=== PATIENT | male | born 1945 | race Caucasian/White ===

== ENCOUNTER 2023-05-25 16:43 | Observation (INO) | payer OTHER, SELFPAY ==
[2023-05-25] VITALS (25 sets, daily range): BP systolic 151–166; BP diastolic 80–101; PULSE 76–112; RESP 11–26; TEMP 36.7; O2SAT 92–99; BMI 23.7; BMI 23.4
--- NOTE | 2023-05-25 16:50 | ECG_ITS ---
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
--- NOTE | 2023-05-25 16:53 | CT_ITS ---
The [address] [address] Patient Name: MIAN COYLE MRN: [id number] date: 1945 Sex: M Assigned Patient Location: ED.MAIN Current Patient Location: ED.MAIN Accession/Order Number: [id number] Exam Date: 05/25/2023 16:45 Report Date: 05/25/2023 17:19 At the request of: YADI SMITH Procedure: CT stroke head/brain wo con EXAMINATION: CT stroke head/brain wo con TECHNIQUE: Axial CT images were obtained through the brain. Sagittal and coronal reformatted images were also obtained. Dose reduction techniques were achieved by using automated exposure control and/or adjustment of mA and/or kV according to patient size and/or use of iterative reconstruction technique. HISTORY: weak . Acute slurred speech. COMPARISON: None. FINDINGS: Intracranial Bleed: No evidence for acute intracranial bleed. Intracranial Mass: No evidence for mass lesion. No mass effect or midline shift. Extra-axial spaces: There is mild cerebral atrophy and proportional ventricular enlargement. White/Ibarra Matter: Loss of ibarra-white matter differentiation of the left frontal lobe suspicious for subacute ischemia. Moderate chronic white matter small vessel ischemic change. Small old lacunar infarcts of the thalami and basal ganglia bilaterally. Skull/Scalp: No evidence for skull fracture or lesion. Orbits and sinuses: The orbits appear unremarkable. The visualized paranasal sinuses are clear. CT/CT stroke head/brain wo con IMPRESSION: Suspicious for subacute ischemia of the left frontal lobe. A critical result was communicated to Yadi Smith D at 05/25/2023 5:19 PM EDT by Michael Lundy MD. Electronically authenticated by: MICHAEL LUNDY Date: 05/25/2023 17:19
[2023-05-25 16:59] LABS: Basophils Absolute Auto 0.1 10^3/uL (0.0-0.1); Basophils Percent Auto 0.7 % (0.2-2.0); Eosinophils Percent Auto 0.4 % (0.9-7.0); Hematocrit 39.8 % (42.0-54.0); Hemoglobin 13.4 g/dL (14.0-18.0); Immature Granulocytes Abs Auto 0.05 10^3/uL (0.00-0.03); Immature Granulocytes Pct Auto 0.4 % (0.0-0.5); Lymphocytes Absolute Auto 1.3 10^3/uL (1.2-3.8); Mean Corpuscular HGB Conc 33.7 g/dL (29.9-35.2); Mean Corpuscular Hemoglobin 31.1 pg (25.9-34.0); Mean Corpuscular Volume 92.3 fL (80.0-94.0); Mean Platelet Volume 9.7 fL (9.5-13.5); Monocytes Absolute Auto 0.7 10^3/uL (0.3-0.8); Monocytes Percent Auto 6.1 % (1.7-12.0); Neutrophils Percent Auto 80.4 % (43.0-75.0); Platelet Count 228 10^3/uL (150-450); Red Blood Count 4.31 10^6/uL (4.70-6.10); Red Cell Distribution Width 13.2 % (11.0-15.0); White Blood Count 11.2 10^3/uL (4.0-11.0)
[2023-05-25 17:19] LABS: Alanine Aminotransferase 24 U/L (16-63); Albumin Globulin Ratio 0.9; Albumin Level 3.5 g/dL (3.4-5.0); Alkaline Phosphatase 62 U/L (46-116); Anion Gap 11.4; Aspartate Amino Transferase 20 U/L (15-37); Bilirubin Total 0.6 mg/dL (0.2-1.0); Carbon Dioxide 27.4 mmol/L (21.0-32.0); Chloride 104 mmol/L (98-107); Estimated GFR (African America 55 (>=60); Estimated GFR (Non-African Ame 45 (>=60); Globulin 3.8 g/dL; Glucose 212 mg/dL (74-106); Potassium 3.8 mmol/L (3.5-5.1); Sodium 139 mmol/L (136-145); Total Protein 7.3 g/dL (6.4-8.2)
[2023-05-25 17:23] LABS: Amylase 67 U/L (25-115); Bilirubin Direct 0.1 mg/dL (0.0-0.2); Troponin I High Sensitivity 11.9 pg/mL (4.0-76.1)
--- NOTE | 2023-05-25 17:23 | XR_ITS ---
The [address] [address] Patient Name: MIAN COYLE MRN: [id number] date: 1945 Sex: M Assigned Patient Location: ER Current Patient Location: ED.MAIN Accession/Order Number: [id number] Exam Date: 05/25/2023 17:18 Report Date: 05/25/2023 17:37 At the request of: YADI SMITH Procedure: XR chest 1V EXAMINATION: XR chest 1V HISTORY: Slurred speech COMPARISON: Chest x-ray 02/18/2021 TECHNIQUE: Portable chest FINDINGS: The lung parenchyma is free of consolidation or infiltrate. No pneumothorax or pleural effusion. The cardiac, mediastinal and hilar contours are normal. The visualized osseous structures exhibit no gross abnormality. XR/XR chest 1V IMPRESSION: No acute cardiopulmonary abnormality. Electronically authenticated by: BRIAN GOODE Date: 05/25/2023 17:37
--- NOTE | 2023-05-25 18:27 | CT_ITS ---
The [address] [address] Patient Name: MIAN COYLE MRN: [id number] date: 1945 Sex: M Assigned Patient Location: ER Current Patient Location: ED.MAIN Accession/Order Number: [id number] Exam Date: 05/25/2023 18:20 Report Date: 05/25/2023 19:26 At the request of: YADI SMITH Procedure: CT angio head CT angio neck, CT angio head, 05/25/2023 6:20 PM EDT INDICATION: subacute stroke COMPARISON: There is no appropriate prior study for comparison. TECHNIQUE: Pre and postcontrast enhanced CT angiography of the head and neck were acquired withoutcontrast.3 D MIP images were reconstructed in sagittal and coronal format at the scanner and were evaluated at the time of dictation.3-D images provided by [employer] software. Dose reduction techniques were achieved by using automated exposure control and/or adjustment of mA and/or kV according to patient size and/or use of iterative reconstruction technique. FINDINGS: The great vessels enhance normally. No filling defects are identified within the carotid arteries. There is no significant stenosis at the origin of the internal carotid arteries. No abnormality of [place] is noted. There is significant atherosclerotic changes within the cavernous portion of the internal carotid arteries with mild stenosis on the left side. There is a plastic right A1. The proximal anterior cerebral artery is azygos. There is a origin of the right MEAT TEAM MEMBER. The KIKA MCA and MEAT TEAM MEMBER are unremarkable. The anterior and posterior communicating arteries are patent. There is no aneurysm or other significant stenosis. Mild focal stenosis within the right V4. No abnormality of the remainder of vertebral and basilar arteries is noted. No mass, mass effect or midline shift or hemorrhage in the brain parenchyma is noted. No significant soft tissue abnormality within the neck is noted. The visualized portion of the lungs is unremarkable. There is a diverticulum within the proximal esophagus measuring approximately 4.6 cm in transverse diameter. No suspicious bone lesion is noted. Multilevel degenerative changes of cervical spine. Mild degenerative changes within the right TMJ are noted. CT/CT angio head IMPRESSION: No CT evidence of embolus or severe stenosis or dissection in the major arteries in the current study. CAROTID STENOSIS REFERENCE: MILD = <50% stenosis. MODERATE = 50-69% stenosis. SEVERE = >70% stenosis. Electronically authenticated by: OMAR CUNNINGHAM Date: 05/25/2023 19:26
--- NOTE | 2023-05-25 18:27 | CT_ITS ---
The [address] [address] Patient Name: MIAN COYLE MRN: [id number] date: 1945 Sex: M Assigned Patient Location: ER Current Patient Location: ED.MAIN Accession/Order Number: [id number] Exam Date: 05/25/2023 18:20 Report Date: 05/25/2023 19:26 At the request of: YADI SMITH Procedure: CT angio neck CT angio neck, CT angio head, 05/25/2023 6:20 PM EDT INDICATION: subacute stroke COMPARISON: There is no appropriate prior study for comparison. TECHNIQUE: Pre and postcontrast enhanced CT angiography of the head and neck were acquired withoutcontrast.3 D MIP images were reconstructed in sagittal and coronal format at the scanner and were evaluated at the time of dictation.3-D images provided by [employer] software. Dose reduction techniques were achieved by using automated exposure control and/or adjustment of mA and/or kV according to patient size and/or use of iterative reconstruction technique. FINDINGS: The great vessels enhance normally. No filling defects are identified within the carotid arteries. There is no significant stenosis at the origin of the internal carotid arteries. No abnormality of [place] is noted. There is significant atherosclerotic changes within the cavernous portion of the internal carotid arteries with mild stenosis on the left side. There is a plastic right A1. The proximal anterior cerebral artery is azygos. There is a origin of the right SILO FILLER. The KIKA MCA and SILO FILLER are unremarkable. The anterior and posterior communicating arteries are patent. There is no aneurysm or other significant stenosis. Mild focal stenosis within the right V4. No abnormality of the remainder of vertebral and basilar arteries is noted. No mass, mass effect or midline shift or hemorrhage in the brain parenchyma is noted. No significant soft tissue abnormality within the neck is noted. The visualized portion of the lungs is unremarkable. There is a diverticulum within the proximal esophagus measuring approximately 4.6 cm in transverse diameter. No suspicious bone lesion is noted. Multilevel degenerative changes of cervical spine. Mild degenerative changes within the right TMJ are noted. CT/CT angio neck IMPRESSION: No CT evidence of embolus or severe stenosis or dissection in the major arteries in the current study. CAROTID STENOSIS REFERENCE: MILD = <50% stenosis. MODERATE = 50-69% stenosis. SEVERE = >70% stenosis. Electronically authenticated by: OMAR CUNNINGHAM Date: 05/25/2023 19:26
[2023-05-25 19:06] LABS: Bilirubin Urine NEGATIVE (NEGATIVE); Blood Urine NEGATIVE (NEGATIVE); Clarity Urine CLEAR (CLEAR); Color Urine YELLOW (YELLOW); Glucose Urine UA NEGATIVE (NEGATIVE); Ketones Urine NEGATIVE (NEGATIVE); Leukocyte Esterase Urine NEGATIVE (NEGATIVE); Nitrite Urine NEGATIVE (NEGATIVE); Protein Urine NEGATIVE (NEG/TRACE); Specific Gravity Urine 1.015 (1.005-1.025); Urobilinogen Urine 0.2 EU/dL (0.2-1.0); pH Urine 7.5 (5.0-9.0)
[2023-05-25 19:13] LABS: Bacteria Urine NONE SEEN #/HPF (NONE SEEN); Cast Seen? NONE SEEN #/LPF (NONE SEEN); Crystals Seen? None Seen #/HPF (None Seen); Mucus Urine NONE SEEN (NONE SEEN); RBC Urine 0-2 #/HPF (0-2); Squamous Epithelial Cell Urine RARE #/LPF (NONE/RARE); WBC Urine NONE SEEN #/HPF (NONE SEEN)
[2023-05-25 19:14] LABS: Urine Culture Indicated NO
--- NOTE | 2023-05-25 20:10 | ED_ITS ---
HPI - General Adult General Chief complaint: Weakness Stated complaint: CVA Time Seen by Provider: 05/25/23 16:46 Source: patient Source information: EMS Mode of arrival: ambulance Limitations: no limitations History of Present Illness HPI narrative: This 77-year-old male was signed out to me at shift change. He presents for evaluation of slurred speech for the past several days that became worse today. A CT scan done upon arrival showed a subacute stroke. His NIH score was 1. The patient has had a cerebellar bleed in the past and states that takes very short steps to walk and since having that stroke has some degree of visual change on the right eye. The right eye deviates laterally when he is looking forward but when he closes his left eye the right eye is able to go to the Center physician. He has no focal weakness, numbness or tingling. He denies any headache. Upper and lower from the strength and sensation is intact. He is agitated with his family and yelling at them. According to the patient and his family his speech is somewhat slurred but he has very easy to understand. I reviewed the patient's EKG which is sinus rhythm at 83 bpm with no acute changes. Labs are also reviewed And are essentially normal with mild elevation of the creatinine at 1.5. The case was [facility] neurolog[facility], Dr Crenshaw. He reviewed the CT scan and suggests admission with one dose of PO aspirin 324mg and MRI with neuro in consultation. pt is agreeable. The case was discussed with the hospitalist and he is accepted for admission to med/surg Critical care time 35 minutes Related Data Home Medications Medication Instructions Recorded Confirmed acetaminophen 325 mg tablet 650 mg PO Q6H PRN pain 05/25/23 05/25/23 amlodipine 10 mg tablet 10 mg PO DAILY 05/25/23 05/25/23 atorvastatin 10 mg tablet 10 mg PO QPM 05/25/23 05/25/23 capsaicin 0.1 % topical cream 1 applic topical BID 05/25/23 05/25/23 (Arthritis Pain Relief (capsaicin)) carboxymethylcellulose ophthalmic (eye) TID 05/25/23 docusate sodium 100 mg capsule 100 mg PO DAILY 05/25/23 05/25/23 finasteride 5 mg tablet 5 mg PO DAILY 05/25/23 05/25/23 glucose 4 gram chewable tablet 16 g PO Q15M PRN hypoglycemia 05/25/23 05/25/23 hydrochlorothiazide 12.5 mg tablet 12.5 mg PO DAILY 05/25/23 05/25/23 labetalol 100 mg tablet 100 mg PO DAILY 05/25/23 05/25/23 lidocaine 4 % topical spray ea topical QID 05/25/23 potassium 20 mg chewable tablet 10 mg PO DAILY 05/25/23 05/25/23 simethicone 80 mg chewable tablet 160 mg PO BID 05/25/23 05/25/23 Allergies Allergy/AdvReac Type Severity Reaction Status Date / Time No Known Drug Allergies Allergy Verified 05/25/23 16:59 [facility] Medical History (Updated 05/25/23 @ 20:29 by Desiree Gallegos MD) Social History Smoking status: Former smoker Exam Constitutional Vital Signs, click to edit/add: Last Vital Signs Temp 98.1 F 05/25/23 16:53 Pulse 87 05/25/23 19:21 Resp 25 H 05/25/23 19:21 BP 152/100 H 05/25/23 19:21 Pulse Ox 98 05/25/23 19:21 Course Vital Signs Vital signs: Vital Signs Temperature 98.1 F 05/25/23 16:53 Pulse Rate 81 05/25/23 16:53 Respiratory Rate 16 05/25/23 16:53 Blood Pressure 165/88 H 05/25/23 16:53 Pulse Oximetry 97 05/25/23 16:53 Temperature 98.1 F 05/25/23 16:53 Pulse Rate 87 05/25/23 19:21 Respiratory Rate 25 H 05/25/23 19:21 Blood Pressure 152/100 H 05/25/23 19:21 Pulse Oximetry 98 05/25/23 19:21 Medical Decision Making [facility] Narrative Medical decision making narrative: [place] [address] CT Scan Report Signed Patient: MIAN COYLE MR#: [id number] : 1945 Acct:[id number] Age/Sex: 77 / M ADM Date: 05/25/23 Loc: ER Attending Dr: Ordering Physician: Mark Smith Date of Service: 05/25/23 Procedure(s): CT stroke head/brain wo con Accession Number(s): [id number] cc: Physician,Non-Staff Amanda~ The [place] [id number] Patient Name: MIAN COYLE MRN: [id number] date: 1945 Sex: M Assigned Patient Location: ED.MAIN Current Patient Location: ED.MAIN Accession/Order Number: [id number] Exam Date: 05/25/2023 16:45 Report Date: 05/25/2023 17:19 At the request of: YADI SMITH Procedure: CT stroke head/brain wo con EXAMINATION: CT stroke head/brain wo con TECHNIQUE: Axial CT images were obtained through the brain. Sagittal and coronal reformatted images were also obtained. Dose reduction techniques were achieved by using automated exposure control and/or adjustment of mA and/or kV according to patient size and/or use of iterative reconstruction technique. HISTORY: weak . Acute slurred speech. COMPARISON: None. FINDINGS: Intracranial Bleed: No evidence for acute intracranial bleed. Intracranial Mass: No evidence for mass lesion. No mass effect or midline shift. Extra-axial spaces: There is mild cerebral atrophy and proportional ventricular enlargement. White/Ibarra Matter: Loss of ibarra-white matter differentiation of the left frontal lobe suspicious for subacute ischemia. Moderate chronic white matter small vessel ischemic change. Small old lacunar infarcts of the thalami and basal ganglia bilaterally. Skull/Scalp: No evidence for skull fracture or lesion. Orbits and sinuses: The orbits appear unremarkable. The visualized paranasal sinuses are clear. CT/CT stroke head/brain wo con IMPRESSION: Suspicious for subacute ischemia of the left frontal lobe. A critical result was communicated to Yadi Smith D at 05/25/2023 5:19 PM EDT [place] [address] CT Scan Report Signed Patient: MIAN COYLE MR#: [id number] : 1945 Acct:[id number] Age/Sex: 77 / M ADM Date: 05/25/23 Loc: ER Attending Dr: Ordering Physician: Mark Smith Date of Service: 05/25/23 Procedure(s): CT angio head Accession Number(s): [id number] cc: Physician,Non-Staff Amanda~ The [address] [address] Patient Name: MIAN COYLE MRN: [id number] date: 1945 Sex: M Assigned Patient Location: ER Current Patient Location: ED.MAIN Accession/Order Number: [id number] Exam Date: 05/25/2023 18:20 Report Date: 05/25/2023 19:26 At the request of: YADI SMITH Procedure: CT angio head CT angio neck, CT angio head, 05/25/2023 6:20 PM EDT INDICATION: subacute stroke COMPARISON: There is no appropriate prior study for comparison. TECHNIQUE: Pre and postcontrast enhanced CT angiography of the head and neck were acquired withoutcontrast.3 D MIP images were reconstructed in sagittal and coronal format at the scanner and were evaluated at the time of dictation.3-D images provided by [employer] software. Dose reduction techniques were achieved by using automated exposure control and/or adjustment of mA and/or kV according to patient size and/or use of iterative reconstruction technique. FINDINGS: The great vessels enhance normally. No filling defects are identified within the carotid arteries. There is no significant stenosis at the origin of the internal carotid arteries. No abnormality of [place] is noted. There is significant atherosclerotic changes within the cavernous portion of the internal carotid arteries with mild stenosis on the left side. There is a plastic right A1. The proximal anterior cerebral artery is azygos. There is a origin of the right BARIATRIC SURGEON. The KIKA MCA and BARIATRIC SURGEON are unremarkable. The anterior and posterior communicating arteries are patent. There is no aneurysm or other significant stenosis. Mild focal stenosis within the right V4. No abnormality of the remainder of vertebral and basilar arteries is noted. No mass, mass effect or midline shift or hemorrhage in the brain parenchyma is noted. No significant soft tissue abnormality within the neck is noted. The visualized portion of the lungs is unremarkable. There is a diverticulum within the proximal esophagus measuring approximately 4.6 cm in transverse diameter. No suspicious bone lesion is noted. Multilevel degenerative changes of cervical spine. Mild degenerative changes within the right TMJ are noted. CT/CT angio head IMPRESSION: No CT evidence of embolus or severe stenosis or dissection in the major arteries in the current study. CAROTID STENOSIS REFERENCE: MILD = <50% stenosis. MODERATE = 50-69% stenosis. SEVERE = >70% stenosis. Electronically authenticated by: OMAR CUNNINGHAM Date: 05/25/2023 19:26 Lab Data Labs: Lab Results 05/25/23 05/25/23 Range/Units 16:45 19:00 WBC 11.2 H (4.0-11.0) 10^3/uL RBC 4.31 L (4.70-6.10) 10^6/uL Hgb 13.4 L (14.0-18.0) g/dL Hct 39.8 L (42.0-54.0) % MCV 92.3 (80.0-94.0) fL MCH 31.1 (25.9-34.0) pg MCHC 33.7 (29.9-35.2) g/dL RDW 13.2 (11.0-15.0) % Plt Count 228 (150-450) 10^3/uL MPV 9.7 (9.5-13.5) fL Neut % (Auto) 80.4 H (43.0-75.0) % Lymph % (Auto) 12.0 L (20.5-60.0) % [place] % (Auto) 6.1 (1.7-12.0) % Eos % (Auto) 0.4 L (0.9-7.0) % Baso % (Auto) 0.7 (0.2-2.0) % Neut # (Auto) 9.0 H (1.4-6.5) 10^3/uL Lymph # (Auto) 1.3 (1.2-3.8) 10^3/uL [place] # (Auto) 0.7 (0.3-0.8) 10^3/uL Eos # (Auto) 0.0 (0.0-0.7) 10^3/uL Baso # (Auto) 0.1 (0.0-0.1) 10^3/uL Abs Immat Gran (auto) 0.05 H (0.00-0.03) 10^3/uL Imm/Tot Granulo (auto) 0.4 (0.0-0.5) % Sodium 139 (136-145) mmol/L Potassium 3.8 (3.5-5.1) mmol/L Chloride 104 (98-107) mmol/L Carbon Dioxide 27.4 (21.0-32.0) mmol/L Anion Gap 11.4 BUN 24.0 H (7.0-18.0) mg/dL Creatinine 1.50 H (0.70-1.30) mg/dL Est GFR ( Amer) 55 L (>=60) Est GFR (Non-Af Amer) 45 L (>=60) BUN/Creatinine Ratio 16.0 Glucose 212 H (74-106) mg/dL Calcium 9.0 (8.5-10.1) mg/dL Total Bilirubin 0.6 (0.2-1.0) mg/dL Direct Bilirubin 0.1 (0.0-0.2) mg/dL AST 20 (15-37) U/L ALT 24 (16-63) U/L Alkaline Phosphatase 62 (46-116) U/L Troponin I High Sens 11.9 (4.0-76.1) pg/mL Total Protein 7.3 (6.4-8.2) g/dL Albumin 3.5 (3.4-5.0) g/dL Globulin 3.8 g/dL Albumin/Globulin Ratio 0.9 Amylase 67 (25-115) U/L Lipase 80.0 (73.0-393.0) U/L Urine Color Yellow (YELLOW) Urine Clarity Clear (CLEAR) Urine pH 7.5 (5.0-9.0) Ur Specific [place] 1.015 (1.005-1.025) Urine Protein Negative (NEG/TRACE) mg/dL Urine Glucose (UA) Negative (NEGATIVE) mg/dL Urine Ketones Negative (NEGATIVE) mg/dL Urine Occult Blood Negative (NEGATIVE) Urine Nitrite Negative (NEGATIVE) Urine Bilirubin Negative (NEGATIVE) Urine Urobilinogen 0.2 (0.2-1.0) EU/dL Ur Leukocyte Esterase Negative (NEGATIVE) Urine RBC 0-2 (0-2) #/HPF Urine WBC None seen (NONE SEEN) #/HPF Ur Squamous Epith Cells Rare (NONE/RARE) #/LPF Urine Crystals None seen (None Seen) #/HPF Urine Bacteria None seen (NONE SEEN) #/HPF Urine Casts None seen (NONE SEEN) #/LPF Urine Mucus None seen (NONE SEEN) Ur Culture Indicated? No Discharge Plan Discharge Chief Complaint: Weakness Clinical Impression: Dysarthria Patient Disposition: Admitted as Observation Time of Disposition Decision: 20:29 Condition: Fair Prescriptions / Home Meds: No Action capsaicin [Arthritis Pain Relief(capsaic)] 0.1 % cream 1 applic topical BID Rx Instructions: do not wash area for at least 30 min after application glucose 4 gram tablet,chewable 16 g PO Q15M PRN (Reason: hypoglycemia) Rx Instructions: until symptoms of low blood sugar are controlled atorvastatin 10 mg tablet 10 mg PO QPM labetalol 100 mg tablet 100 mg PO DAILY amlodipine 10 mg tablet 10 mg PO DAILY carboxymethylcellulose solution ophthalmic (eye) TID Rx Instructions: INTILL 2 DROPS IN EACH EYE TID simethicone 80 mg tablet,chewable 160 mg PO BID Rx Instructions: after meals finasteride 5 mg tablet 5 mg PO DAILY lidocaine 4 % aerosol,spray topical QID Rx Instructions: TOPICAL CREAM acetaminophen 325 mg tablet 650 mg PO Q6H PRN (Reason: pain) potassium 20 mg tablet,chewable 10 mg PO DAILY docusate sodium 100 mg capsule 100 mg PO DAILY hydrochlorothiazide 12.5 mg tablet 12.5 mg PO DAILY Referrals: Physician,Non-Staff, MD [Primary Care Provider] - 1 week
--- NOTE | 2023-05-25 23:04 | PC.NURSE ---
Patient money is in locked cupboard
--- NOTE | 2023-05-25 23:11 | CA_ITS ---
Patient: MIAN COYLE Exam Date: 05/26/2023 : 1945 Gender:M Ordering : Patrick Zee Admission #: [id number] Family : SHAIKH Claudy GREGORY . Order #: [id number] CLICK HERE TO VIEW EXAM ECHOCARDIOGRAM REPORT PROCEDURE: CA ECHO DOPPLER COMPLETE INDICATIONS: CVA COMPARISON: None. DESCRIPTION: COMPLETE ECHOCARDIOGRAM Real-time transthoracic echocardiography with 2D, M-mode, spectral and color flow Doppler performed. QUALITY: Technical quality was good. LEFT VENTRICLE: Normal chamber size. Moderate to severe concentric left ventricular hypertrophy. LV EF: Global left ventricular systolic function is hyperdynamic. Calculated left ventricular ejection fraction is 68% DIASTOLIC: Normal diastolic function. ATRIAL SEPTUM: Appears intact. No shunting seen by color Doppler evaluation. LEFT ATRIUM: Normal chamber size. RIGHT ATRIUM: Severe dilatation. RIGHT VENTRICLE: Appears enlarged. Systolic function is preserved. TRICUSPID VALVE: Normal mobility and thickness. Mild regurgitation. No evidence of pulmonary hypertension. RVSP 29mmHg MITRAL VALVE: Normal mobility and thickness. No evidence of mitral valve stenosis. Mild mitral annular calcification. Trivial mitral regurgitation. AORTIC VALVE: Normal trileaflet appearance. Heavily calcified aortic valve. Moderately diminished mobility. Doppler velocity suggests mild to moderate aortic valve stenosis. DVI 0.3, SCOTTY 1.3cm2, Vmax 2.8m/s, Mean gradient 15mmHg. Velocities may be exaggerated due to hyperdynamic left ventricular systolic function. No aortic regurgitation. AORTIC ROOT: Normal diameter and appearance. PULMONIC VALVE: Normal thickness and mobility. No stenosis. No regurgitation. PERICARDIUM: No evidence of pericardial effusion. IVC: Not well visualized. CONCLUSION: 1. Global left ventricular systolic function is hyperdynamic; visually estimated ejection fraction is 65 to 70%. No obvious regional wall motion abnormalities. 2. Moderate to severe left ventricular hypertrophy. 3. Normal diastolic function. 4. The right atrium is severely enlarged. 5. The right ventricle appears enlarged with preserved systolic function. 6. Mild tricuspid regurgitation. 7. Mild to moderate aortic valve stenosis. Adult Echocardiography Procedure Report Left Ventricle LVEDD (3.7 - 5.6 cm): 3.66 cm LVESD (2.2 - 4.0 cm): 2.31 cm LVIVS thickness (0.6 - 1.2 cm): 1.27 cm LVPW thickness (0.5 - 1.0 cm): 1.25 cm e': 0.10 m/s E - e': 6.04 LVOT Max Gradient: 3.09 mm[Hg], 2.92 mm[Hg] LVOT Area (cm2): 0.87 m/s Peak Velocity (LVOT): 0.88 m/s, 0.85 m/s Mean Velocity (LVOT): 0.68 m/s LVOT Diameter 2.26 cm Left Ventricular Ejection Fraction: 67.95 % Left Atrium LA Volume Index (2D A2C): 38.07 ml/m2 Left Atrium Systolic Dimension: 3.18 cm Mitral Valve MV E to A Ratio: 0.71 Mitral Valve A-Wave Peak Velocity: 0.87 m/s Mitral Valve E-Wave Peak Velocity: 0.62 m/s Right Ventricle RV Internal Diastolic Dimension: 5.10 cm Aorta AO Root Diam: 3.35 cm Ascending Ao Diam: 2.92 cm Aortic Valve AoV Area (Peak Jesús): 1.35 cm2, 1.41 cm2, 1.39 cm2, 1.23 cm2, 1.25 cm2 AoV Area (VTI): 1.39 cm2, 1.43 cm2, 1.41 cm2 Peak Velocity(Antegrade Flow): 2.50 m/s, 2.46 m/s, 2.79 m/s, 2.82 m/s Peak Gradient(Antegrade Flow): 24.91 mm[Hg], 24.20 mm[Hg], 31.22 mm[Hg], 31.79 mm[Hg] Mean Velocity(Antegrade Flow): 1.82 m/s, 1.76 m/s, 1.69 m/s Mean Gradient(Antegrade Flow): 14.76 mm[Hg], 14.12 mm[Hg], 14.48 mm[Hg] Velocity Time Integral: 54.83 cm, 53.22 cm, 57.05 cm Tricuspid Valve Peak Velocity (Regurgitant Flow): 2.50 m/s, 2.61 m/s, 2.57 m/s Pulmonic Valve Mean Gradient: 2.52 mm[Hg], 2.17 mm[Hg] Mean Velocity: 0.75 m/s, 0.68 m/s Peak Velocity: 0.99 m/s Peak Gradient: 4.39 mm[Hg], 3.47 mm[Hg] Right Atrium Right Atrium Systolic Pressure: 73.88 ml, 73.88 ml Dictated by: Scot Jenkins M.D. on 05/26/2023 at 16:59 Approved by: Scot Jenkins M.D. on 05/26/2023 at 17:07
--- NOTE | 2023-05-25 23:14 | P.PN_ITS ---
Progress Note: Subjective Subjective Interval history: chief complaint: Dysarthria HPI: 77-year-old male with history of HTN, HDL, DM II, BPH who presents for evaluation of slurred speech for the past several days that became worse today. A CT scan done upon arrival showed a subacute stroke. His NIH score was 1. The patient has had a cerebellar bleed in the past and states that takes very short steps to walk and since having that stroke has some degree of visual change on the right eye. The right eye deviates laterally when he is looking forward but when he closes his left eye the right eye is able to go to the Center physician. He has no focal weakness, numbness or tingling. He denies any headache. Upper and lower from the strength and sensation is intact. According to the patient and his family his speech is somewhat slurred but he has very easy to understand. he denies any fevers, chills, sweats, chest pain, abdominal pain, change in bowel urinary habits, ataxia. ER discussed with [facility] neurology, Dr Crenshaw. He reviewed the CT scan and suggests admission with one dose of PO aspirin 324mg and MRI with neuro in consultation. Past medical history: Hypertension, hyperlipidemia, BPH past surgical history: Reviewed as per chart allergies: No known drug allergies Home medications: Reviewed and reconciled per chart social history, denies any active smoking, alcohol or illicit drug use, lives with family family history: Noncontributory to today's visit physical exam: General: Sitting up in bed, eating food, in no acute distress, appears comfortable HEENT: Wearing eyeglasses, trachea midline, EOMI, reports decreased vision in the right eye which is chronic CVS: Regular rate and rhythm no edema lungs: Normal respiratory effort, bilateral air entry GI: Soft, nontender, nondistended neuro: Dysarthria, no focal weakness sensation to light touch intact Exam Constitutional Vital Signs, click to edit/add: Last Vital Signs Temp 98.1 F 05/25/23 22:00 Pulse 93 H 05/25/23 22:00 Resp 20 05/25/23 22:17 BP 164/88 H 05/25/23 22:00 Pulse Ox 95 05/25/23 22:00 O2 Del Method Room Air 05/25/23 22:00 Progress Note: Objective Labs Labs: Short CBC 05/25/23 Range/Units 16:45 WBC 11.2 H (4.0-11.0) 10^3/uL Hgb 13.4 L (14.0-18.0) g/dL Hct 39.8 L (42.0-54.0) % Plt Count 228 (150-450) 10^3/uL BMP 05/25/23 16:45 Sodium 139 Potassium 3.8 Chloride 104 Carbon Dioxide 27.4 BUN 24.0 H Creatinine 1.50 H Glucose 212 H Calcium 9.0 Liver Function 05/25/23 Range/Units 16:45 Total Bilirubin 0.6 (0.2-1.0) mg/dL Direct Bilirubin 0.1 (0.0-0.2) mg/dL AST 20 (15-37) U/L ALT 24 (16-63) U/L Alkaline Phosphatase 62 (46-116) U/L Albumin 3.5 (3.4-5.0) g/dL Urine 05/25/23 Range/Units 19:00 Urine Color Yellow (YELLOW) Urine Clarity Clear (CLEAR) Urine pH 7.5 (5.0-9.0) Ur Specific [place] 1.015 (1.005-1.025) Urine Protein Negative (NEG/TRACE) mg/dL Urine Glucose (UA) Negative (NEGATIVE) mg/dL Progress Note: A&P Assessment and Plan (1) Dysarthria: (2) CVA (cerebral vascular accident): (3) Hyperlipemia: (4) Hypertension: Plan Dysarthria, subacute left frontal CVA hypertension, uncontrolled hyperlipidemia BPH elevated creatinine possible underlying CKD, unknown baseline creatinine - admit to telemetry bed with neuro checks - start aspirin, high-intensity Lipitor - risk stratify with lipid panel hemoglobin A1c level - check brain MRI, 2D echo, consider [facility] on discharge - PT/OT / ST evaluation - order home antihypertensives and adjust for better blood pressure control - avoid nephrotoxic agents, renally dose medications, fluid hydration and recheck creatinine level DVT prophylaxis-Lovenox goals of care-Full Code communications: Discussed with emergency room physician, bedside nurse, patient updated of plan of care, all questions answered to their satisfaction. Disposition -home when medically stable as the provider of this telehealth evaluation, requested by the patient's evaluating physician, I attest that I introduced myself to the patient, provided my credentials and determined that telemedicine via a real-time 2 weight interactive audio and video platform is an appropriate and effective means of providing this service. I reviewed the patient's chart and had a discussion with the member of the patient's treatment team. The patient and I mutually agreed with continuation of this evaluation via telemedicine. The patient consented for the telemedicine evaluation. The nurse was present during the entire time the encounter and was able to move the stethoscope and appropriate directions. A patient was evaluated at 11:30 p.m.. Telemedicine Attestation Telemedicine Attestation I conducted this encounter from [[place]] via secure live, [id number] video conference with the patient, located at [facility] with [nursing team]. Prior to the interview, the risks and benefits of telemedicine were discussed with the patient and verbal consent was obtained.
[2023-05-26] VITALS (9 sets, daily range): BP systolic 159–161; BP diastolic 81–85; PULSE 78–95; RESP 2–20; TEMP 36.6–37.3; O2SAT 92–93
[2023-05-26] MEDS: ATORVASTATIN CALCIUM 10 MG TABLET 40 MG PO (00:02)
[2023-05-26] MEDS: LACTATED RINGER'S SOLUTION 1,000 ML 125 ML IV ×2 (00:10→07:30)
[2023-05-26 05:11] LABS: Chol HDL Ratio 2.3; Cholesterol 140 mg/dL (<=200); HDL Cholesterol 61 mg/dL (40-60); Triglycerides 82 mg/dL (<=150); VLDL CHOLESTEROL 16.4 mg/dL
[2023-05-26 05:12] LABS: Estimated Average Glucose 123 mg/dL; Glycohemoglobin A1C 5.9 % (4.5-6.2)
--- NOTE | 2023-05-26 09:11 | SWNOTE1 ---
SW spoke with physical therapy and pt cares for his with dementia at home and is main caregiver. SW to talk with pt about home health or SNF.
[2023-05-26] MEDS: FINASTERIDE 5 MG TABLET PO (09:37)
[2023-05-26] MEDS: AMLODIPINE BESYLATE 5 MG TABLET 10 MG PO (09:37)
[2023-05-26] MEDS: ENOXAPARIN SODIUM 40 MG/0.4 ML SYRINGE SUBQ (09:38)
[2023-05-26] MEDS: LABETALOL HCL 100 MG TABLET PO (09:38)
[2023-05-26] MEDS: ASPIRIN 81 MG TABLET.DR 162 MG PO (09:38)
--- NOTE | 2023-05-26 11:40 | MR_ITS ---
The [address] [address] Patient Name: MIAN COYLE MRN: [id number] date: 1945 Sex: M Assigned Patient Location: [place] Current Patient Location: [place] Accession/Order Number: [id number] Exam Date: 05/26/2023 11:40 Report Date: 05/26/2023 16:21 At the request of: TRISTON BETTS Procedure: MR head/brain wo con EXAM: MR head/brain wo con HISTORY: CVA COMPARISON: CT angiogram of the head and neck 05/25/2023. TECHNIQUE: Ultrasound MultiHance MR imaging of the head was performed without intravenous contrast. FINDINGS: There is a small ill-defined area of restricted diffusion within the ventral left meseret measuring 1.0 x 1.3 cm with corresponding increased T2 and FLAIR signal. No acute hemorrhage, mass effect, midline shift, or extra-axial fluid collection. There is moderate to severe diffuse cerebral atrophy with concordant prominence of the ventricles. Moderate to severe patchy confluent areas of increased FLAIR signal is seen within the periventricular and subcortical white matter. Expected flow voids are noted within the intracranial internal carotid, vertebral, and basilar arteries. The cerebellopontine angles and internal auditory canals are unremarkable. The pituitary gland and midline structures are unremarkable. Bone marrow signal is within normal limits. The orbits and globes are unremarkable. There has been bilateral cataract eye surgery. Expected signal voids are seen within the paranasal sinuses and mastoid air cells. Evaluation is mildly limited due to motion and artifact. MR/MR head/brain wo con IMPRESSION: 1. Acute ischemic infarct within the ventral left meseret. No acute hemorrhage or mass effect 2. Moderate to severe atrophy and chronic small vessel ischemic changes of the supratentorial white matter. Electronically authenticated by: BRIAN VINCENT Date: 05/26/2023 16:21
--- NOTE | 2023-05-26 11:42 | CM.NOTE ---
Rounds made with Dr. Thomas, pt will have MRI and echo today. If testing ok possible discharge to home this afternoon.
--- NOTE | 2023-05-26 14:07 | SWNOTE1 ---
SW completed assessment with daughter in room, pt was down getting MRI. Pt lives at home with his who he cares for as she has dementia. Family is very involved with nieces, nephews, neighbors, and pt's children all helping as needed. Pt does have home delivered meals coming in as well. Pt's daughter stated a nurse practitioner comes to the home to see pt's and did evaluation on pt the other day as well. Someone in family stops daily and family/neighbors call daily as well. SW did ask pt's daughter if pt would be interested in home health. Pt's daughter was very open and stated it would be waste of SW time to talk to him about it. Family is working together to come up with a plan at some point for pt and . Pt's daughter expressed her parents have been doing this for years. She also expressed that pt's has been to facility before and she ended up worse than when she went in. At this time pt's daughter would just like a list of the home health companies for future references. [facility] provided HH list and a list from medicare.gov as well. Pt will be dc home, refusal of services at this time. SW to follow as needed.
--- NOTE | 2023-05-26 15:27 | PM.HP ---
H&P: HPI History of Present Illness Chief complaint: Slurred speech Narrative: HPI and Hospital Course: 77 y o male with prior hx of hemorrhagic CVA with residual deficits was brought for slurred speech that has been ongoing for over one week. Patient was evaluated in ED and his w/u indicated acute/subacute CVA on CTH and he was admitted overnight for observation and w/u for CVA. Patient underwent CTA head/neck that did not show any large vessel occlusion/stenosis or thrombosis. MRI brain revealed acute infarct in left pontine region and severe microvascular changes. He also had an ECHO which did not show any sig structural abnormality (official read is pending). No evidence of Afib on tele. Patient also had PT/OT, speech eval. He has sig balance issues with unsteady gait from his prior stroke and was not interested in rehab placement. He lives with his and there is considerable family support at home who also are in agreement and would like him to go home. He denies any active complaints and is more or less at baseline. Admission Diagnosis Acute ischemic stroke HTN HLD BPH Discharge Diagnosis as above Discharge status stable Review of Systems ROS Status of ROS 10 or more systems reviewed and unremarkable except as noted in history and below [facility] Medical History (Updated 05/26/23 @ 15:37 by Shaikh William MD) Family History Father Family history of myocardial infarction Mother Family history of cancer Family history of hypertension Social History Within the past year, how often did you have a drink containing alcohol: never Score interpretation: A score less than 4 is consistent with normal alcohol consumption. Smoking status: Former smoker Non-prescribed substance use: denies use Previous occupational history: retired Known occupational exposures/hazards: Yes Known occupational exposures/hazards details: Hazardous dust Highest level of school completed/degree received: Bachelor's degree Are you now , , , , never or living with a partner: In a typical week, how many times do you talk on the telephone with family, friends, or neighbors: 3 or more times per week How often do you get together with friends or relatives: never How often do you attend restorationist or hinduism services: never Do you belong to any clubs or organizations such as restorationist groups unions, fraternal or athletic groups, or school groups: yes Total score: 3 Score interpretation: A score of greater than or equal to 2 indicates the lowest level of social isolation. Little interest or pleasure in doing things: several days Feeling down, depressed, or hopeless: several days Feel stressed/tense/nervous/anxious/difficulty sleeping: to some extent Life stressor details: [employer] for Do you think of yourself as: straight/heterosexual Gender Identity: male Meds Home Medications and Allergies Home Medications Medication Instructions Recorded Confirmed Type acetaminophen 325 mg tablet 650 mg PO Q6H PRN pain 05/25/23 05/25/23 History amlodipine 10 mg tablet 10 mg PO DAILY 05/25/23 05/25/23 History atorvastatin 10 mg tablet 10 mg PO QPM 05/25/23 05/25/23 History capsaicin 0.1 % topical cream 1 applic topical BID 05/25/23 05/25/23 History (Arthritis Pain Relief (capsaicin)) carboxymethylcellulose ophthalmic (eye) TID 05/25/23 History docusate sodium 100 mg capsule 100 mg PO DAILY 05/25/23 05/25/23 History finasteride 5 mg tablet 5 mg PO DAILY 05/25/23 05/25/23 History glucose 4 gram chewable tablet 16 g PO Q15M PRN hypoglycemia 05/25/23 05/25/23 History hydrochlorothiazide 12.5 mg tablet 12.5 mg PO DAILY 05/25/23 05/25/23 History labetalol 100 mg tablet 100 mg PO DAILY 05/25/23 05/25/23 History lidocaine 4 % topical spray ea topical QID 05/25/23 History potassium 20 mg chewable tablet 10 mg PO DAILY 05/25/23 05/25/23 History simethicone 80 mg chewable tablet 160 mg PO BID 05/25/23 05/25/23 History Allergies Allergy/AdvReac Type Severity Reaction Status Date / Time No Known Drug Allergies Allergy Verified 05/25/23 16:59 Exam Constitutional Vital Signs, click to edit/add: Last Vital Signs Temp 98 F 05/26/23 14:00 Pulse 82 05/26/23 14:03 Resp 2 L 05/26/23 14:00 BP 159/81 H 05/26/23 14:00 Pulse Ox 92 L 05/26/23 14:00 O2 Del Method Room Air 05/26/23 14:00 Documenting provider has reviewed patient's vital signs: yes Common normals: no apparent distress and oriented x3 General appearance: cooperative HENMT Common normals: normocephalic and head/scalp atraumatic Head and scalp: normocephalic and atraumatic Eye Common normals: conjunctivae normal and no scleral icterus Conjunctiva: conjunctiva(e) normal Respiratory Common normals: normal respiratory effort and clear to auscultation bilaterally Effort & inspection: able to speak in complete sentences Auscultation: clear to auscultation bilaterally Cardio Common normals: regular rate, S1 normal heart sound and S2 normal heart sound Rate: regular rate Heart sounds: S1 normal and S2 normal GI Common normals: Normal to inspection, nondistended, normoactive bowel sounds present, soft to palpation, non-tender and no hepatosplenomegaly Palpation: soft and no hepatosplenomegaly Extremity Common normals: no clubbing, cyanosis or edema Neuro Common normals: oriented x3 and moves all extremities Speech: abnormal speech Details: slurred Gait (neuro): ataxic Other: Right eye deviation. EOMI intact otherwise. Psych Common normals: mental status grossly normal, denies hallucinations, denies homicidal ideation and denies suicidal ideation Results Labs Labs: Short CBC 05/25/23 Range/Units 16:45 WBC 11.2 H (4.0-11.0) 10^3/uL Hgb 13.4 L (14.0-18.0) g/dL Hct 39.8 L (42.0-54.0) % Plt Count 228 (150-450) 10^3/uL BMP 05/25/23 16:45 Sodium 139 Potassium 3.8 Chloride 104 Carbon Dioxide 27.4 BUN 24.0 H Creatinine 1.50 H Glucose 212 H Calcium 9.0 Liver Function 05/25/23 Range/Units 16:45 Total Bilirubin 0.6 (0.2-1.0) mg/dL Direct Bilirubin 0.1 (0.0-0.2) mg/dL AST 20 (15-37) U/L ALT 24 (16-63) U/L Alkaline Phosphatase 62 (46-116) U/L Albumin 3.5 (3.4-5.0) g/dL Urine 05/25/23 Range/Units 19:00 Urine Color Yellow (YELLOW) Urine Clarity Clear (CLEAR) Urine pH 7.5 (5.0-9.0) Ur Specific [place] 1.015 (1.005-1.025) Urine Protein Negative (NEG/TRACE) mg/dL Urine Glucose (UA) Negative (NEGATIVE) mg/dL Assessment and Plan Assessment and Plan (1) Acute ischemic stroke: (2) Hypertension: (3) Hyperlipemia: (4) CKD (chronic kidney disease) stage 3, GFR 30-59 ml/min: Assessment and Plan: Admitted for acute ischemic stroke. Patient has no evidence of large vessel disease on CTA Head and neck. Lipid panel at goal. A1C is normal. Except for mild slurring of speech - no new neurological signs and symptoms. PT/OT eval and their rec was short term rehab but patient and family refused and would like him to stay home. No evidence of afib on tele. 2D ECHO official read is pending but no sig structural abnormality noted by tech. Will d/c on ASA, statin. Outpatient f/u with vascular neurology, PCP in 1-2 weeks
--- NOTE | 2023-05-26 16:05 | SWNOTE1 ---
[facility] They do have an open case and they were just checking in discharge plans. SW did let them know pt is being discharged today and they refused services at this time. APS will follow up with family. SW did notify doctor about [facility]PS case.
--- NOTE | 2023-05-29 15:12 | CM.DCFOLLOWU ---
1st attempt discharge follow up call made by Chet Otero on 05/29/23, no answer at this time
--- NOTE | 2023-05-30 15:57 | CM.DCFOLLOWU ---
Person spoke with: patient How are you feeling? hanging in there How is your pain? no pain Did you understand your discharge instructions? yes Do you have any questions about your discharge instructions? no questions Were you given any prescriptions at discharge? yes Were you able to get your prescriptions filled? the neighbor is picking it up today Do you understand how to take your medications as ordered? yes Do you have any questions about your follow up appointment and do you plan to keep your follow up appointment? no questions, still working on scheduling his [facility] follow up, he will try to call again Is there anything else that you would like to discuss? no Questions/Comments/Concerns/Other:
== END 2023-05-26 16:34 | disposition home or self-care (01) ==
LOC: ER 20:29 → MS 21:31
PROVIDERS: Emergency Medicine; Admitting Provider Internal Medicine; Emergency Provider Emergency Medicine; Visit Provider Internal Medicine
DX: I63.9 Cerebral infarction, unspecified (principal); I12.9 Hypertensive chronic kidney disease with stage 1 through stage 4 chronic kidney disease, or unspecified chronic kidney disease; N18.30 Chronic kidney disease, stage 3 unspecified; E78.5 Hyperlipidemia, unspecified; N40.0 Benign prostatic hyperplasia without lower urinary tract symptoms; R47.81 Slurred speech; R26.81 Unsteadiness on feet; Z87.891 Personal history of nicotine dependence; Z79.899 Other long term (current) drug therapy; Z86.73 Personal history of transient ischemic attack (TIA), and cerebral infarction without residual deficits
CPT/HCPCS: 36415; 70450; 70496; 70498; 70551; 71045; 80048; 80061; 80076; 81001; 82150; 83036; 83690; 84484; 85025; 87040; 92507; 92523; 93005; 93306; 94761; 96372; 97161; 97165; 97530; 99285; G0378; Q3014; Q9966